=== PATIENT | female | born 1950 | race Caucasian/White ===

== ENCOUNTER 2022-05-02 11:59 | Day surgery (SDC) | payer MEDICARE, OTHER, SELFPAY ==
[2022-03-09 14:10] VITALS: BMI 27.8
[2022-04-11 14:45] VITALS: BMI 27.3
--- NOTE | 2022-04-17 08:26 | HO.ANESPROP2 ---
Documented by User: Rox Jones NP 04/17/22 08:26 HPI - Anesthesia Eval Consult details Narrative: 71yo F for Colonoscopy PMFSH Past Medical History Medical History (Updated 03/09/22 @ 13:52 by Leslye Santoyo RN) Anxiety and depression CKD (chronic kidney disease) Elevated liver function tests Gallbladder polyp GERD (gastroesophageal reflux disease) HTN (hypertension) Hx of colonic polyp Hx of gastritis Neuropathy On beta helen at home Surgical History Surgical History (Updated 04/11/22 @ 14:44 by Eleni Hinton RN) History of History of umbilical hernia repair Hx of colonoscopy Hx of esophagogastroduodenoscopy Social History Social History Are you a primary home care and home health aides teacher to a significant other at home: No Do you presently have visiting nurse or other home services: No Patient Tobacco Use Status: Never used Tobacco Use of substances other than those prescribed or required for medical reasons: No Have you been hit, kicked, punched, or otherwise hurt by someone within the past year? If so, by whom?: No Are you DNR?: No Advance Directives: No Advance Directives Information Provided: Yes Advance Directives on File: No Meds Allergies Allergy/AdvReac Type Severity Reaction Status Date / Time No Known Allergies Allergy Verified 03/09/22 13:53 Home Medications Medication Instructions Recorded Confirmed Last Taken Type cyanocobalamin (vitamin B-12) 500 500 mcg PO DAILY 03/09/22 03/09/22 Unknown History mcg tablet (Vitamin B-12) folic acid 400 mcg tablet 0.4 mg PO DAILY 03/09/22 03/09/22 Unknown History metoprolol succinate 100 mg 100 mg PO DAILY 03/09/22 03/09/22 Unknown History capsule sprinkle, ext. release 24 hr nifedipine 60 mg tablet,extended 60 mg PO DAILY 03/09/22 03/09/22 Unknown History release olmesartan 5 mg tablet 5 mg PO DAILY 03/09/22 03/09/22 Unknown History omeprazole 20 mg tablet,delayed 20 mg PO DAILY 03/09/22 03/09/22 Unknown History release simvastatin 20 mg tablet 20 mg PO DAILY 03/09/22 03/09/22 Unknown History venlafaxine 150 mg tablet,extended 150 mg PO DAILY 03/09/22 03/09/22 Unknown History release 24 hr vitamin K2 100 mcg capsule 100 mcg PO DAILY 03/09/22 03/09/22 Unknown History Exam Exam Date and Time: April 17, 2022 08 Height,Weight and Vital Signs: Height 5 ft 9 in Weight 83.915 kg Assessment and Plan Assessment Anesthesia Assessment: Chart Reviewed Documented by User: Marquise Waggoner MD 05/02/22 12:28 [facility] Past Medical History Medical History (Updated 03/09/22 @ 13:52 by Leslye Santoyo, MARIAMA) Anxiety and depression CKD (chronic kidney disease) Elevated liver function tests Gallbladder polyp GERD (gastroesophageal reflux disease) HTN (hypertension) Hx of colonic polyp Hx of gastritis Neuropathy On beta helen at home Family History Family history of problems with anesthesia: No Surgical History Surgical History (Updated 04/11/22 @ 14:44 by Eleni Hinton RN) History of History of umbilical hernia repair Hx of colonoscopy Hx of esophagogastroduodenoscopy History of Problems with Anesthesia: No Social History Social History Are you a primary home care and home health aides teacher to a significant other at home: No Do you presently have visiting nurse or other home services: No Patient Tobacco Use Status: Never used Tobacco Use of substances other than those prescribed or required for medical reasons: No Have you been hit, kicked, punched, or otherwise hurt by someone within the past year? If so, by whom?: No Are you DNR?: No Advance Directives: No Advance Directives Information Provided: Yes Advance Directives on File: No Meds Allergies Allergy/AdvReac Type Severity Reaction Status Date / Time No Known Allergies Allergy Verified 03/09/22 13:53 Home Medications Medication Instructions Recorded Confirmed Last Taken Type cyanocobalamin (vitamin B-12) 500 500 mcg PO DAILY 03/09/22 03/09/22 Unknown History mcg tablet (Vitamin B-12) folic acid 400 mcg tablet 0.4 mg PO DAILY 03/09/22 03/09/22 Unknown History metoprolol succinate 100 mg 100 mg PO DAILY 03/09/22 03/09/22 Unknown History capsule sprinkle, ext. release 24 hr nifedipine 60 mg tablet,extended 60 mg PO DAILY 03/09/22 03/09/22 Unknown History release olmesartan 5 mg tablet 5 mg PO DAILY 03/09/22 03/09/22 Unknown History omeprazole 20 mg tablet,delayed 20 mg PO DAILY 03/09/22 03/09/22 Unknown History release simvastatin 20 mg tablet 20 mg PO DAILY 03/09/22 03/09/22 Unknown History venlafaxine 150 mg tablet,extended 150 mg PO DAILY 03/09/22 03/09/22 Unknown History release 24 hr vitamin K2 100 mcg capsule 100 mcg PO DAILY 03/09/22 03/09/22 Unknown History Exam Airway Mallampati Class: III TM Dist: >3cm Neck ROM: Full Loose/Missing/Broken Teeth: Yes and Lower Assessment and Plan Assessment Anesthesia Assessment: Anesthesia Plan Discussed Final Anesthetic Review Family History of Problems with Anesthesia: No History of Problems with Anesthesia: No NPO: Yes ASA Class: II Final Preanesthetic Review: No Changes in Pt Med Stat, Meds/Allgs Chart Reviewed, Consent Obtained/Reviewed and Anes Risks/Benef Reviewed Patient Risk: Low Procedure Risk: Low Anesthetic Plan Anesthetic Plan: MAC: Disposition: Standard PACU
[2022-05-02 12:48] VITALS: BP 148/94; PULSE 96; RESP 16; TEMP 37.1; O2SAT 97
[2022-05-02] MEDS: Lactated Ringers 1,000 ML 100 ML IVCONT (12:54)
--- NOTE | 2022-05-02 12:55 | MHC.SHP ---
Pre-Procedural Eval Section A Date of Service: 05/02/22 Section B Chief Complaint: screening Details of Present Illness: see H&P no changes Relevant Family History (Specify if Yes): No Relevant Social History: Alcohol Use Present Medications: see Short Stay Collaborative assessment Medical History: No relevant PMH History of Previous Operations: No relevant previous surgery Allergies: Allergies Allergy/AdvReac Type Severity Reaction Status Date / Time No Known Allergies Allergy Verified 03/09/22 13:53 Review of Systems Sugical H&P ROS: Negative: Constitution, Cardiovascular, Respiratory, Neurological, Psychiatric, Hem-Onc, Allergic/Immunologic, Gastrointestinal, Genitourinary, Musculoskeletal, Integumentary, Endocrine and Eyes/Ears/Nose/Throat Exam Surgical H&P Exam: Normal: HEENT, Normal: Heart, Normal: Lungs, Normal: Extremities, Normal: Abdomen, Normal: Skin and Normal: Neurological Plan Diagnosis/Plan: Unchanged I have reviewed the history and physical and performed a pertinent physical examination on my patient. No changes have occurred unless specified.
[2022-05-02 13:39] VITALS: BP 111/72; PULSE 80; RESP 16; TEMP 36.2; O2SAT 96
--- NOTE | 2022-05-02 13:41 | PM.OP ---
Brief Operative Note Date of Service: 05/02/22 Pre-op diagnosis: screening Post-op diagnosis: same (colon polyps) Surgeon: Leonardo Simeon Anesthesia: MAC Was an Smoke Jumper used for this Procedure?: No Estimated blood loss (mL): 2 Pathology: other Condition: stable Disposition: PACU
[2022-05-02 13:54] VITALS: BP 126/92; PULSE 73; RESP 16; O2SAT 96
[2022-05-02 14:09] VITALS: BP 133/68; PULSE 83; RESP 16; TEMP 36.2; O2SAT 97
--- NOTE | 2022-05-02 21:21 | OP_ITS ---
SURGEON: Leonardo Simeon MD INDICATIONS: Colon cancer screening and prior history of adenomatous colon polyps. PREOPERATIVE DIAGNOSIS: POSTOPERATIVE DIAGNOSIS: PROCEDURE PERFORMED: Colonoscopy to the terminal ileum with biopsy and snare polypectomy. ESTIMATED BLOOD LOSS: COMPLICATIONS: ANESTHESIA: ASSISTANTS: SPECIMENS: MEDICATIONS: Monitored anesthesia care. DESCRIPTION OF PROCEDURE: History and physical were performed. The risks and benefits of the procedure were explained to the patient. Informed consent was obtained. The patient was placed in the left lateral decubitus position. External hemorrhoids skin tags were seen on the examination of the exterior rectum. There were moderately large internal hemorrhoids noted on retroflexed view. The digital rectal exam was performed and was found to be otherwise normal. The Olympus pediatric video colonoscope was introduced into the rectum and advanced to the cecum with the assistance of abdominal wall pressure due to looping in the sigmoid. The cecum was identified by transillumination, palpation, and identification of ileocecal valve. Examination was performed and the scope was removed. She tolerated the procedure well and was taken to recovery area in stable condition. FINDINGS: The terminal ileum was briefly glimpsed and appeared normal. The visualized colonic mucosa was within normal limits without evidence of colitis. A total of 3 polyps were identified and removed. The 1st was located at the ileocecal valve measuring less than 5 mm and was removed with biopsy forceps. The 2nd and 3rd were located at 55 cm respectively and 40 cm. The polyp at 55 cm measured approximately 10 mm and was removed in piecemeal fashion with a hot snare. The polyp at 40 cm was removed with a snare as well measuring approximately 7 mm. There was a mild diverticulosis of the sigmoid. There was some liquid stool coating the mucosa. This was washed and suctioned and did not significantly limit the examination. Retroflexed examination showed the hemorrhoids as described above, but was otherwise normal. IMPRESSION: Colon polyps. RECOMMENDATION: Follow up the biopsy results. MD DIMAS Fajardo/THA / [id number]
== END 2022-05-02 16:12 | disposition home or self-care (01) ==
PROVIDERS: PCP Internal Medicine; Visit Provider Internal Medicine Gastroenterology
PROC: 0DJD8ZZ Inspection of Lower Intestinal Tract, Via Natural or Artificial Opening Endoscopic (ICD-10-PCS; CPT 45378; principal; 2022-05-02 13:00)
DX: Z12.11 Encounter for screening for malignant neoplasm of colon (principal); Z86.010 Personal history of colon polyps; D12.0 Benign neoplasm of cecum; K51.40 Inflammatory polyps of colon without complications; K57.30 Diverticulosis of large intestine without perforation or abscess without bleeding; K64.8 Other hemorrhoids; K64.4 Residual hemorrhoidal skin tags; K21.9 Gastro-esophageal reflux disease without esophagitis; I12.9 Hypertensive chronic kidney disease with stage 1 through stage 4 chronic kidney disease, or unspecified chronic kidney disease; N18.9 Chronic kidney disease, unspecified; K82.4 Cholesterolosis of gallbladder; G62.9 Polyneuropathy, unspecified; F41.8 Other specified anxiety disorders; R79.89 Other specified abnormal findings of blood chemistry; Z79.899 Other long term (current) drug therapy
CPT/HCPCS: 45385; 45380; 88305